=== PATIENT | male | born 1985 | race Caucasian/White ===

== ENCOUNTER 2017-01-26 07:02 | Emergency (ER) | payer OTHER ==
[~2017-01-26] VITALS: Ht 177.8 cm; Wt 81.8 kg
[2017-01-26 07:06] VITALS: BP 123/78
[2017-01-26] MEDS ORDERED: ACET50TA PO (07:10)
[2017-01-26] MEDS ORDERED: CLEO300C2 PO (07:29)
[2017-01-26] MEDS ORDERED: NORCOTAB PO (07:29)
[2017-01-26] MEDS ORDERED: CLINDAMYCIN 150 MG CAP PO ONE (07:30)
[2017-01-26] MEDS ORDERED: NORCO, ANEXSIA 5/325MG TABLET (HYDROcodone/ACETAMINOPHEN) PO ONE (07:30)
== END 2017-01-26 07:38 | disposition home or self-care (01) ==
LOC: M ED 07:02
DX: L02.31 Cutaneous abscess of buttock (principal)

== ENCOUNTER → 2018-07-11 | Outpatient (CLI) | payer OTHER ==
[~2018-07-11] MED LIST: CLEO300C2 PO; MAPA500T2 PO; NORCOTAB PO
--- NOTE | 2018-07-12 03:45 | REP ---
Clinical: Right first digit sprain Technique: AP, lateral, bilateral oblique views right first digit . Findings: There is no evidence for acute fracture or dislocation. Very minimal sclerosis and joint space narrowing at the first metacarpophalangeal joint noted. No further degenerative changes appreciated. Surrounding soft tissues normal. Impression: No acute fracture or dislocation. Very subtle degenerative change at the MCP joint. Electronically Signed by Brady Trinidad MD 07/12/2018 03:36 A
== END ==
LOC: M WUC 15:42
PROVIDERS: ATTEND Physician Assistant
DX: S63.601A Unspecified sprain of right thumb, initial encounter (principal); X58.XXXA Exposure to other specified factors, initial encounter; Y92.9 Unspecified place or not applicable

== ENCOUNTER → 2020-04-23 | Outpatient (CLI) | payer OTHER ==
[~2020-04-23] MED LIST changes: +HYDR-3715 PO; -NORCOTAB PO
--- NOTE | 2020-04-23 16:31 | REP ---
INDICATION: LT TESTIS PAIN. Positive family history of testicular cancer. Left testicular pain. COMPARISON: None. TECHNIQUE: High-resolution bilateral scrotal sonography is carried out. FINDINGS: Normal homogeneous testicular parenchyma is seen bilaterally. No intratesticular mass lesion is seen on either side. Right testicular dimensions are 5.4 x 2.3 x 3.0 cm. Left testis measures 5.3 x 2.3 x 3.1 cm. There are small cysts in the head of the epididymis on each side, the largest on the right measures 0.4 cm in the largest on the left 0.1 cm. Testicular Doppler flow is normal bilaterally. Resistive indices are 0.67 on the right and 0.64 on the left. There is no evidence of hydrocele, hernia, or varicocele. IMPRESSION: No evidence of intratesticular mass lesion. Normal Doppler flow. No significant morphologic abnormality. <Electronically signed by Bala Mann > 04/23/20 [id number]
== END ==
LOC: M RAD 15:55
PROVIDERS: ATTEND Physician Assistant Medical
DX: N50.812 Left testicular pain (principal); Z80.43 Family history of malignant neoplasm of testis

== ENCOUNTER 2020-10-26 16:21 | Emergency (ER) | payer OTHER ==
[~2020-10-26] VITALS: Ht 177.8 cm; Wt 97.3 kg
[2020-10-26] MEDS ORDERED: IBUP200C25 PO (16:32)
--- NOTE | 2020-10-26 17:20 | REP ---
INDICATION: trauma. COMPARISON: None. TECHNIQUE: Standard helical technique using 2 mm increments and reconstructed in both sagittal and coronal planes. FINDINGS: Vertebral body height and alignment is normal. There is no acute fracture, dislocation, or subluxation. There is no abnormal paraspinal soft tissue swelling. The disc spaces are symmetric and well maintained throughout. The facet joints are well aligned bilaterally. IMPRESSION: Within normal limits <Electronically signed by Guillaume Ko > 10/26/20 [id number]
[2020-10-26] MEDS ORDERED: BUPIVACAINE HCL 0.5% 10ML VIAL SC ONE (18:20)
[2020-10-26] MEDS ORDERED: BUPIVACAINE HCL 0.5% 10ML VIAL As Ordered ONE (18:23)
[2020-10-26] MEDS ORDERED: PERCOCET 5MG/325MG TAB PO ONE (18:55)
[2020-10-26] MEDS ORDERED: ONDANSETRON 4 MG ORAL DISINTEGRATING TAB PO ONE (19:45)
[2020-10-26] MEDS ORDERED: HYDROmorphone 2 MG TAB PO ONE (19:45)
--- NOTE | 2020-10-26 20:09 | REPVR ---
PROCEDURE INFORMATION: Exam: XR Left Shoulder Exam date and time: 10/26/2020 6:01 PM Age: 35 years old Clinical indication: Pain; Shoulder; Left; Additional info: Trauma TECHNIQUE: Imaging protocol: XR Left shoulder. Views: 2 or more views. COMPARISON: No relevant prior studies available. FINDINGS: Bones/joints: Joint spaces are normal. No fracture or malalignment. Soft tissues: Normal. IMPRESSION: No fracture or malalignment. Electronically signed by: Sav Tom On 10/26/2020 20:09:21 PM
[2020-10-26 20:40] VITALS: BP 131/72
[2020-10-26] MEDS ORDERED: OXYCODONE/APAP 5MG/325MG(BULK FOR ED) 1 TABLET PO ONE (21:25)
[2020-10-26] MEDS ORDERED: IBUP80TA PO (21:31)
[2020-10-26] MEDS ORDERED: PERC5TAB12 PO (21:31)
[2020-10-27] MEDS ORDERED: BUPIVACAINE 0.75% 10 ML VIAL XX ONE (09:00)
== END 2020-10-26 21:47 | disposition home or self-care (01) ==
LOC: M ED 16:21
DX: M25.512 Pain in left shoulder (principal)
CPT/HCPCS: 72125; 73030; 99283; Q0162

== ENCOUNTER 2020-12-05 07:00 | Outpatient (RCR) | payer OTHER ==
[~2020-12-05 07:00] MED LIST changes: +IBUP200C25 PO; +IBUP80TA PO; +PERC5TAB12 PO
== END 2020-12-06 ==
LOC: M PT 07:00
PROVIDERS: ATTEND Orthopaedic Surgery Sports Medicine
DX: S43.112A Subluxation of left acromioclavicular joint, initial encounter (principal); X58.XXXA Exposure to other specified factors, initial encounter; Y92.9 Unspecified place or not applicable; Y99.9 Unspecified external cause status

== ENCOUNTER 2020-12-25 06:59 | Outpatient (RCR) | payer OTHER | END 2021-01-06 | LOC: M PT 06:59 | PROVIDERS: ATTEND Orthopaedic Surgery Sports Medicine | DX: S43.112A Subluxation of left acromioclavicular joint, initial encounter (principal) ==

== ENCOUNTER → 2021-01-01 | Outpatient (REF) | payer OTHER | LOC: M WUC 15:25 | PROVIDERS: ATTEND Physician Assistant | DX: J00 Acute nasopharyngitis [common cold] (principal) ==

== ENCOUNTER 2021-01-07 06:59 | Outpatient (RCR) | payer OTHER | END 2021-02-05 | LOC: M PT 06:59 | PROVIDERS: ATTEND Orthopaedic Surgery Sports Medicine | DX: S43.112A Subluxation of left acromioclavicular joint, initial encounter (principal) ==